=== PATIENT | male | born 1990 | race Caucasian/White ===

== ENCOUNTER 2017-04-18 23:12 | Emergency (ER) | payer OTHER ==
[~2017-04-18] VITALS: Ht 177.8 cm; Wt 77.6 kg
[~2017-04-18 23:12] MED LIST: CLEOCIN HCL300 M1 PO; METHADOSE PO; NO MEDICATIONS; ULTRAM PO; VOLTAREN75 MG PO
[2017-04-19 01:18] LABS: BASOPHIL% 0.3 % (0-2.5); HEMOGLOBIN 12.7 gm/dL (13.0-16.0); LYMPHOCYTE# 0.9 X10e3 (1.0-3.5); LYMPHOCYTE% 8.9 % (17.0-45.0); MEAN CELL VOLUME 84.1 FL (83-96); MEAN CORPUSCULAR HEMOGLOBIN 29.7 PG (28-34); MEAN CORPUSCULAR HGB CONC 35.3 g/dL (30-36); MEAN PLATELET VOLUME 9.1 FL (6.5-11.5); MONOCYTE# 0.4 X10e3 (0-1.0); MONOCYTE% 4.3 % (3.0-12.0); NEUTROPHIL# 8.8 X10e3 (1.5-7.1); NEUTROPHIL% 86.5 % (40-75); PLATELET COUNT 95 X10e3 (140-420); RED BLOOD COUNT 4.28 X10e (3.90-5.60); RED CELL DISTRIBUTION WIDTH 13.1 % (11.0-15.5); WHITE BLOOD COUNT 10.2 X10e3 (4.0-10.5)
[2017-04-19 01:24] LABS: DIFF IND NO
[2017-04-19 01:40] LABS: BUN/CREATININE RATIO 23.84; CALCIUM SERUM 8.3 mg/dL (8.4-10.2); CREATININE SERUM 1.3 mg/dL (0.6-1.4); GLOM FILT RATE Estimated 74.3 mL/min (>60)
[2017-04-19 01:41] LABS: POTASSIUM 2.3 mmol/L (3.5-5.1)
[2017-04-19 03:55] LABS: URINE SOURCE CLEAN CATCH
[2017-04-19 03:58] LABS: URINE APPEARANCE CLEAR; URINE BILIRUBIN NEG (NEG); URINE BLOOD TRACE-INTACT (NEG); URINE COLOR YELLOW; URINE GLUCOSE NEG (NORM); URINE KETONE NEG (NEG); URINE LEUKOCYTE ESTERASE NEG (NEG); URINE NITRATE NEG (NEG); URINE PROTEIN TRACE (NEG); URINE SPECIFIC GRAVITY <=1.005 (1.003-1.035); URINE UROBILINOGEN 0.2 MG/DL (NORM)
[2017-04-19 04:00] LABS: MICRO INDICATED? YES
[2017-04-19 04:01] LABS: CULTURE INDICATED? NO; URINE BACTERIA NEG (NEG); URINE MUCUS PRESENT; URINE SQUAMOUS EPITHELIAL CELL FEW /[HPF]; URINE WBC 0-2 /[HPF] (0-5)
[2017-04-19 04:07] LABS: AMPHETAMINE NEG (NEG); BARBITURATES NEG (NEG); BENZODIAZEPINES NEG (NEG); COCAINE NEG (NEG); MARIJUANA NEG (NEG); OPIATES NEG (NEG); TRICYCLIC ANTIDEPRESSANTS NEG (NEG); U METHADONE NEG (NEG)
[2017-04-19 06:08] LABS: CALCIUM SERUM 7.3 mg/dL (8.4-10.2)
[2017-04-19 06:09] LABS: POTASSIUM 2.7 mmol/L (3.5-5.1)
== END 2017-04-19 06:41 | disposition home or self-care (01) ==
LOC: SED 23:12
PROVIDERS: Emergency Medicine
DX: L02.414 Cutaneous abscess of left upper limb (principal); E87.6 Hypokalemia; F17.200 Nicotine dependence, unspecified, uncomplicated
CPT/HCPCS: 36415; 80048; 80307; 81003; 83605; 83735; 85025; 87040; 87070; 87077; 87186; 87205; 96365; 96375; 99283; J3370; J3475

== ENCOUNTER 2017-04-24 00:58 | Emergency (ER) | payer OTHER ==
[~2017-04-24] VITALS: Ht 177.8 cm; Wt 77.6 kg
[2017-04-24] MEDS ORDERED: CLEOCIN PO (01:23)
== END 2017-04-24 03:19 | disposition home or self-care (01) ==
LOC: SED 00:58
DX: Z48.817 Encounter for surgical aftercare following surgery on the skin and subcutaneous tissue (principal); R60.0 Localized edema; Z79.2 Long term (current) use of antibiotics; Z88.1 Allergy status to other antibiotic agents
CPT/HCPCS: 99282